=== PATIENT | female | born 1940 | race Caucasian/White ===

== ENCOUNTER 2021-01-28 17:19 | Observation (INO) | payer MEDICARE, SELFPAY ==
[2021-01-28 17:21] VITALS: BP 135/67; PULSE 69; RESP 18; TEMP 37.2; O2SAT 97; BMI 28.3
[2021-01-28 17:22] VITALS: BP 135/67; PULSE 69; RESP 18; TEMP 37.2; O2SAT 97
--- NOTE | 2021-01-28 17:40 | US_ITS ---
INDICATION: BILAT LOWER LEG REDNESS AND SWELLING EXAMINATION: US Venous Duplex LE Bilat Complete TECHNIQUE: Santana scale, pulse wave, and color flow Doppler imaging was performed of the lower extremity venous system. The bilateral greater saphenous, common femoral, femoral, and popliteal veins were interrogated. COMPARISON: None. FINDINGS: There is normal compression, augmentation, and signal throughout the visualized deep lower extremity veins. No mass or focal fluid collection. Subcutaneous edema seen in the bilateral lower legs. US/Venous Duplex Imag/Medardo Extrem IMPRESSION: No sonographic evidence of deep venous thrombosis. Electronically Signed: Corbin Katz MD at 19:38 EDT Tel , Service support ,
--- NOTE | 2021-01-28 17:43 | ED.DCSUM_ITS ---
- ER Visit Summary Date of Service: 01/28/21 Chief Complaint: Lower extremity redness History of Present Illness: The patient is a 80 F presenting with bilateral lower extremity redness and swelling. Patient states this has been ongoing for the past 2 weeks and has been progressively worsening. She has been seen by her primary care physician in [place]. She states she has been on 2 courses of antibiotics and just finished the second course today. She is unsure which antibiotics. She states she was advised to come to the ED by her primary care physician because her symptoms are not improving. She has had subjective fever with temperature up to 99. She denies chest pain or shortness of breath. She has nausea with no vomiting. Denies PE/DVT risk factors. She received Covid vaccine with second shot 2 weeks ago. Physical Examination: Vitals are stable. Patient is afebrile. Alert no acute distress. HEENT exam is unremarkable. Neck is supple. Lungs are clear and equal bilaterally. Heart is regular rate and rhythm. Abdomen is soft nontender nondistended. Extremities right greater than left lower extremity edema, bilateral lower extremity erythema, normal distal pulses Skin is warm and dry. No focal neurologic deficit. Remainder of exam is unremarkable. Emergency Department Course and Treatment: CBC, chemistries unremarkable. Sed rate is normal. Bilateral venous Doppler ultrasound shows no evidence of DVT. Patient was given vancomycin, morphine, Zofran. Will discuss with hospitalist for admission due to failed outpatient antibiotics. Disposition: Admission Impression: Bilateral lower extremity cellulitis This note was generated with [employer] dictation software. It may contain incorrect words, spelling, and punctuation that were not noted in review of the chart prior to signing ED Disposition - Plan for ED Patient: Referrals: Yovanny Boles MD [Primary Care Provider] -
[2021-01-28 18:17] LABS: Absolute Lymphocyte Count 1.68 X10^3/uL (0.83-4.51); Absolute Neutrophil Count 2.8 X10^3/uL (2.0-7.7); Basophil# 0.02 X10^3/uL; Basophil% 0.4 % (0-1); Eosinophil# 0.21 X10^3/uL; Hematocrit 35.5 % (37-47); Hemoglobin 11.2 g/dL (12.0-15.0); Lymphocyte # 1.68 X10^3/ul (4.0); Lymphocyte % 31.7 % (19-41); Mean Corp Hgb Conc 31.5 g/dL (32-36); Mean Corpuscular Hgb 25.9 pg (27.0-32.0); Mean Platelet Vol. 10.8 fl (6.2-12.0); Monocyte# 0.54 X10^3/uL; Monocyte% 10.2 % (0-10); NRBC Flagged by Analyzer 0 % (0-5); Neutrophil # 2.84 X10^3/uL (2.7-7.7); Neutrophil % 53.5 % (47-70); Platelet Count 279 K/mm3 (150-450); RBC Distribution Width CV 15.6 % (11.6-14.6); RBC Distribution Width SD 46.4 fl (35.1-43.9); Red Blood Count 4.33 M/mm3 (4.2-5.4); White Blood Count 5.3 K/mm3 (4.4-11.0)
[2021-01-28 18:23] LABS: Erythrocyte Sedimentation Rate 11 mm/hr (0-30)
[2021-01-28 18:34] LABS: Anion Gap 7 (5-15); BUN 19 mg/dL (7-18); BUN/Creat Ratio 18.1 RATIO (10-20); Calcium,Total 9.3 mg/dL (8.5-10.1); Chloride 106 mmol/L (98-107); Creatinine, Serum 1.05 mg/dL (0.55-1.02); EST Glomerular Filtration Rate 54 mL/min (>60); Est Glom Filt Rate - Afr Amer 65 mL/min (>60); Estimated Creatinine Clearance 38.13 ml/min; Glucose 115 mg/dL (74-106); Potassium 3.8 mmol/L (3.5-5.1); Sodium Level 140 mmol/L (136-145)
[2021-01-28] MEDS: Morphine 4 MG/ML Syringe IV (20:25)
[2021-01-28] MEDS: Ondansetron 4 MG/2 ML Vial IV (20:25)
[2021-01-28 20:29] VITALS: BP 124/61; PULSE 75; RESP 16; O2SAT 95
[2021-01-28 20:39] VITALS: BP 124/61; PULSE 75; RESP 16; TEMP 36.8; O2SAT 95
[2021-01-28] MEDS: Vancomycin IV 1,000 MG/200 ML BAG 200 MG IV (20:40)
--- NOTE | 2021-01-28 20:42 | HP.PCM_ITS ---
Problem List (1) Bilateral lower extremity edema Status: Acute (2) Diabetes mellitus type 2 in obese Status: Acute (3) GERD (gastroesophageal reflux disease) Status: Chronic (4) Hyperlipidemia Status: Chronic (5) Hypertension Status: Chronic (6) Chronic anemia Status: Chronic (7) Asthma Status: Chronic (8) Hypothyroidism Status: Chronic (9) Restless leg syndrome Status: Acute History of Present Illness Date of Admission: 01/28/21 Chief Complaint: Redness and inflammation to bilateral lower extremities The patient is a 80 year old F presents today with ongoing redness and swelling to bilateral lower extremities. Patient reports that she has been undergoing treatment by her PCP for this issue for 2 weeks with no improvement in symptoms. Patient has completed rounds of doxycycline and cephalexin with no improvement. Patient was sent to the ER today by her PCP to be further evaluated for suspected cellulitis with failed outpatient treatment. Venous duplex was completed in the ER and was negative for DVT. Patient reports that the redness and swelling is accompanied by itching and feeling like someone is snapping rubber bands all over my feet. Patient has white blood cell count 5.3, afebrile at this time. She is not tachypneic or tachycardic. Denies all other symptoms. Past Medical History Past Medical History (Chronic Problems): Chronic Problems GERD (gastroesophageal reflux disease) (Chronic) Hyperlipidemia (Chronic) Hypertension (Chronic) Chronic anemia (Chronic) Asthma (Chronic) Hypothyroidism (Chronic) Allergies celecoxib [From Celebrex] Allergy (Verified 01/28/21 17:22) Hives Penicillins Allergy (Verified 01/28/21 17:22) Itching Sulfa (Sulfonamide Antibiotics) Allergy (Verified 01/28/21 17:22) Swelling sulfacetamide [From Sulfamide] Allergy (Verified 01/28/21 17:22) Swelling Home Medications: Ambulatory Orders Medication Instructions Recorded Fluticasone/Salmeterol [Advair 2 puff INHALATION BID 01/28/21 250-50 Diskus] Levothyroxine Sodium 75 mcg PO DAILY 01/28/21 Lisinopril 10 mg PO DAILY 01/28/21 Metformin HCl [Metformin HCl ER] 750 mg PO BID 01/28/21 Omeprazole 40 mg PO DAILY 01/28/21 Pramipexole Di-HCl [Mirapex] 2 mg PO QHS 01/28/21 Pravastatin Sodium 40 mg PO DAILY 01/28/21 Surgical History: cataract - Bilateral, total knee arthroplasty - Bilateral, tonsillectomy, - - lumbar Surgery with hardware, x2 Psychiatric History: No pertinent psych hx [employer] History: No pertinent [employer] history Lives: Alone Smoking Status: Never smoker Alcohol: None Drugs: None - *Family History Maternal History Items: Hypertension Paternal History Items: Diabetes Review of Systems Constitutional: Reports: Fever - Patient reports elevated temperature of 99 at home. Denies: Chills, Weight Change HEENT: Denies: Head Aches, Sinus Congestion, Sinus Drainage Cardiovascular: Denies: Chest Pain, Palpitations Respiratory: Denies: Cough, Shortness of breath at rest, Sputum production Gastrointestinal: Denies: Abdominal Pain, Nausea, Vomiting Genitourinary: Denies: Dysuria Musculoskeletal: Reports: Foot Pain. Denies: Joint Pain, Joint Tenderness Skin: Reports: Rash - Red edematous pruritic rash to bilateral feet. Denies: Wounds Neurological: Denies: Numbness, Tingling, Focal weakness Psychiatric: Denies: Anxiety, Depression, Homicidal Ideations, Suicidal Ideations Hematologic/ Lymphatic: Denies: Easy Bruising, Easy Bleeding, Hx of blood clot VTE Information - Inpt Only VTE Present on Admission: No VTE Mechan Device Prophylaxis: SCD's VTE Pharm Prophylaxis ordered?: Yes Patient Problems: Active and Suspected Problems Diabetes mellitus type 2 in obese (Acute) Bilateral lower extremity edema (Acute) - Physical Exam Vitals/I&O's: Vital Signs Temp Pulse Resp BP Pulse Ox 99 F 75 16 124/61 H 95 01/28/21 17:22 01/28/21 20:29 01/28/21 20:29 01/28/21 20:29 01/28/21 20:29 Oxygen Delivery Method Room Air Weight: 165 lb Body Mass Index (BMI) 28.3 General: Alert, Oriented x3, Cooperative HEENT: Atraumatic, PERRLA, EOMI, Normocephalic Neck: Supple, No JVD, Negative Carotid Bruits Lungs: Clear to auscultation, Normal air movement Cardiovascular: Regular rate, No murmurs Abdomen: Bowel Sounds Present, Soft, Non Tender Extremities: Capillary Refill Less than 3 Seconds, Edema, Peripheral Pulses Normal Skin: No breakdown, Rash Present - Bilateral feet red, warm, swollen; right worse than left Musculoskeletal: No Tenderness to Palpation of Joints or Extremities Neurological: Cranial nerves II-XII grossly intact Psych/Mental Status: Normal Affect, Appropriate Laboratory Results 01/28/21 17:50: WBC 5.3, RBC 4.33, Hgb 11.2 L, Hct 35.5 L, MCV 82.0, MCH 25.9 L, MCHC 31.5 L, RDW Std Deviation 46.4 H, RDW Coeff of Dereje 15.6 H, Plt Count 279, MPV 10.8, Immature Gran % (Auto) 0.200, Neut % (Auto) 53.5, Lymph % (Auto) 31.7, Porter % (Auto) 10.2 H, Eos % (Auto) 4.0, Baso % (Auto) 0.4, Absolute Neuts (auto) 2.8, Absolute Lymphs (auto) 1.68, Nucleated RBC % 0, ESR 11 01/28/21 17:50: Sodium 140, Potassium 3.8, Chloride 106, Carbon Dioxide 27.0, Anion Gap 7, BUN 19 H, Creatinine 1.05 H, Estim Creat Clear Calc 38.13, Est GFR (MDRD) Af Amer 65, Est GFR (MDRD) Non-Af 54 L, BUN/Creatinine Ratio 18.1, Glucose 115 H, Calcium 9.3 Current Medications Vancomycin HCl (Vancomycin) 1,000 mg in 200 mls @ 200 mls/hr IV X1 ONE Stop: 01/28/21 21:29 Assessment/Plan All Active Problems Diabetes mellitus type 2 in obese (Acute) Bilateral lower extremity edema (Acute) Restless leg syndrome (Acute) 1. Bilateral lower extremity edema with redness suspicious for cellulitis -Venous Doppler obtained in ER, no DVT noted -Will continue vancomycin, received first dose in ED -Due to normal WBC will obtain procalcitonin level -As needed Benadryl ordered for itching -ROSALIO wraps ordered to bilateral feet and legs -Lasix 40 mg IV twice daily for swelling -Will obtain CBC in the morning -Elevate lower extremities while in bed 2. Diabetes mellitus type II -Hold Metformin -AC at bedtime blood sugar checks with sliding scale insulin 3. Hypertension -Continue lisinopril -As needed hydralazine ordered 4. Hypothyroidism -Continue levothyroxine 5. Hyperlipidemia -Continue pravastatin 6.Restless leg syndrome -Continue pramipexole. 7. GERD -Continue omeprazole. DVT prophylaxis-SCDs, subcu Lovenox This patient was seen by ÁNGELA Navarro under the supervision of Dr. Brown.
[2021-01-28 21:45] VITALS: BMI 31.8; BMI 31.9
[2021-01-28 21:50] VITALS: BP 122/46; PULSE 73; RESP 18; TEMP 36.2; O2SAT 93
[2021-01-28] MEDS: Insulin Lispro 100 UNIT/ML INSULN.PEN SC (23:18)
[2021-01-28] MEDS: MELATONIN 3 MG TABLET PO (23:19)
[2021-01-28] MEDS: DiphenhydrAMINE 50 MG/ML Syringe 12.5 MG IV (23:19)
[2021-01-28] MEDS: Furosemide 40 MG/4 ML Vial IV (23:19)
[2021-01-28] MEDS: Pramipexole Di-HCl 1 MG Tablet 2 MG PO (23:20)
[2021-01-28 23:38] LABS: Procalcitonin < 0.04 ng/mL (0.00-0.09)
[2021-01-28 23:41] LABS: Bedside Glucose 169 mg/dL (70-110)
--- NOTE | 2021-01-28 23:45 | PCM.RX.CS ---
Consult Pharmacy has been consulted to manage selected antiobiotic: Vancomycin Type of Consult: New start Suspected Infection: Skin/Soft tissue Prior Doses of Antibiotics Received/Current Regimen: Medications Vancomycin HCl 1,250 mg/ (Sodium Chloride) 275 mls @ 167 mls/hr IV Q24H ADILIA Discontinued Medications Vancomycin HCl (Vancomycin) 1,000 mg in 200 mls @ 200 mls/hr IV X1 ONE Stop: 01/28/21 21:29 Last Admin: 01/28/21 20:40 Dose: 200 mls/hr Labs: Sodium 140 mmol/L (136-145) 01/28/21 17:50 Potassium 3.8 mmol/L (3.5-5.1) 01/28/21 17:50 Chloride 106 mmol/L (98-107) 01/28/21 17:50 Carbon Dioxide 27.0 mmol/L (21.0-32.0) 01/28/21 17:50 Anion Gap 7 (5-15) 01/28/21 17:50 BUN 19 mg/dL (7-18) H 01/28/21 17:50 Creatinine 1.05 mg/dL (0.55-1.02) H 01/28/21 17:50 Est GFR (MDRD) Af Amer 65 mL/min (>60) 01/28/21 17:50 Est GFR (MDRD) Non-Af 54 mL/min (>60) L 01/28/21 17:50 BUN/Creatinine Ratio 18.1 RATIO (10-20) 01/28/21 17:50 Glucose 115 mg/dL (74-106) H 01/28/21 17:50 Weight used for dosin.3 kg Estimated Creatinine Clearance: 38 Goal Trough: 15-20 mcg/mL Pharmacy Plan for Drug Dosing: Pharmacy Service will continue to monitor and adjust dosing as required. Follow-Up Labs: Trough Vancomycin Labs to be done on [date and time ordered]: 01/30/21 @1999
[2021-01-29 03:27] VITALS: BP 117/45; PULSE 67; RESP 18; TEMP 36.3; O2SAT 97
[2021-01-29] MEDS: oxyCODONE 5 MG Tablet PO (03:35)
[2021-01-29] MEDS: 0.9% Saline Lock 10 ML Syringe IV ×3 (03:35→18:27)
[2021-01-29 05:51] LABS: Absolute Lymphocyte Count 1.57 X10^3/uL (0.83-4.51); Absolute Neutrophil Count 2.7 X10^3/uL (2.0-7.7); Basophil# 0.02 X10^3/uL; Basophil% 0.4 % (0-1); Eosinophil# 0.22 X10^3/uL; Eosinophils% 4.4 % (0-5); Hematocrit 33.8 % (37-47); Hemoglobin 10.4 g/dL (12.0-15.0); Lymphocyte # 1.57 X10^3/ul (4.0); Lymphocyte % 31.1 % (19-41); Mean Corp Hgb Conc 30.8 g/dL (32-36); Mean Corpuscular Hgb 25.7 pg (27.0-32.0); Mean Corpuscular Volume 83.5 fL (81-99); Mean Platelet Vol. 10.7 fl (6.2-12.0); Monocyte# 0.54 X10^3/uL; Monocyte% 10.7 % (0-10); NRBC Flagged by Analyzer 0 % (0-5); Neutrophil # 2.69 X10^3/uL (2.7-7.7); Neutrophil % 53.2 % (47-70); Platelet Count 241 K/mm3 (150-450); RBC Distribution Width CV 15.2 % (11.6-14.6); RBC Distribution Width SD 46.1 fl (35.1-43.9); Red Blood Count 4.05 M/mm3 (4.2-5.4); White Blood Count 5.1 K/mm3 (4.4-11.0)
[2021-01-29 06:17] LABS: AST(SGOT) 19 U/L (15-37); Alanine Aminotransfer ALT/SGPT 27 U/L (13-56); Albumin, Serum 3.1 g/dL (3.2-5.0); Alkaline Phosphatase 108 U/L (45-117); Anion Gap 5 (5-15); BUN 16 mg/dL (7-18); BUN/Creat Ratio 17.7 RATIO (10-20); Calcium,Total 8.9 mg/dL (8.5-10.1); Chloride 103 mmol/L (98-107); Creatinine, Serum 0.91 mg/dL (0.55-1.02); EST Glomerular Filtration Rate 64 mL/min (>60); Est Glom Filt Rate - Afr Amer 77 mL/min (>60); Globulin 3.1 g/dL (2.2-4.2); Glucose 126 mg/dL (74-106); Potassium 3.6 mmol/L (3.5-5.1); Protein, Total 6.2 g/dL (6.4-8.2); Sodium Level 139 mmol/L (136-145)
[2021-01-29] MEDS: Levothyroxine 75 MCG Tablet PO (06:27)
[2021-01-29 06:35] LABS: Bedside Glucose 123 mg/dL (70-110)
[2021-01-29 08:04] VITALS: O2SAT 97
[2021-01-29 09:26] VITALS: BP 108/41; PULSE 58; RESP 18; TEMP 36.6; O2SAT 96
[2021-01-29] MEDS: Enoxaparin 40 MG/0.4 ML Syringe SC (09:39)
[2021-01-29] MEDS: Furosemide 40 MG/4 ML Vial IV ×2 (09:39→18:27)
[2021-01-29] MEDS: Lisinopril 10 MG Tablet PO (09:40)
[2021-01-29] MEDS: Pantoprazole Sodium 40 MG Tablet PO (09:40)
--- NOTE | 2021-01-29 12:19 | PCM.PN.HOSP ---
Patient Problems: Active and Suspected Problems Diabetes mellitus type 2 in obese (Acute) Bilateral lower extremity edema (Acute) Restless leg syndrome (Acute) Subjective: Patient seen and examined. She was admitted with a complaint of redness and inflammation of her bilateral lower extremities. She has been treated on the outpatient basis by his PCP for 2 weeks with no improvement and so she was brought in to be managed for cellulitis of the lower extremities with failed outpatient treatment. Patient complains of itching over the lower extremities. She denies any fever or chills. Review of systems is otherwise negative. She has remained hemodynamically stable Vitals/I&O's: Vital Signs Temp Pulse Resp BP Pulse Ox 97.8 F 58 L 18 108/41 L 96 01/29/21 09:26 01/29/21 09:26 01/29/21 09:26 01/29/21 09:26 01/29/21 09:26 Oxygen Delivery Method Room Air Weight: 183 lb 3.266 oz Body Mass Index (BMI) 31.8 Intake and Output for Last 24 Hours 01/27/21 01/28/21 01/29/21 23:59 23:59 23:59 Intake Total 600 / 600 300 / 300 Balance 600 / 600 300 / 300 General: Alert, Oriented x3, Cooperative, No apparent distress HEENT: Atraumatic, PERRLA, EOMI, Normocephalic Oral: Dry Mucosa Neck: Supple, No JVD, Negative Carotid Bruits, No Nodes Lungs: Clear to auscultation, Normal air movement, No rhonchi, No wheeze, No rales Cardiovascular: Regular rate, Regular Rhythm, Normal S1, Normal S2, No murmurs Abdomen: Bowel Sounds Present, Soft, Non Tender, Non-Distended, No Hepato-splenomegaly Extremities: No clubbing, No cyanosis, No edema, Capillary Refill Less than 3 Seconds Skin: - - varicose veins over RLE, with mild erythema and papular rash over RLE. Stasis dermatitis due to varicose veins Musculoskeletal: - - mild right calf tenderness Lymphatic: No Cervical, Supraclavicular, or Inguinal Adenopathy Neurological: Cranial nerves II-XII grossly intact, Neuro grossly intact, Motor Exam 5/5 strength throughout Psych/Mental Status: Normal Affect, Appropriate, Alert and oriented to time, place, person, mood and affect Laboratory Results 01/28/21 17:50: WBC 5.3, RBC 4.33, Hgb 11.2 L, Hct 35.5 L, MCV 82.0, MCH 25.9 L, MCHC 31.5 L, RDW Std Deviation 46.4 H, RDW Coeff of Dereje 15.6 H, Plt Count 279, MPV 10.8, Immature Gran % (Auto) 0.200, Neut % (Auto) 53.5, Lymph % (Auto) 31.7, Luna % (Auto) 10.2 H, Eos % (Auto) 4.0, Baso % (Auto) 0.4, Absolute Neuts (auto) 2.8, Absolute Lymphs (auto) 1.68, Nucleated RBC % 0, ESR 11 01/28/21 17:50: Sodium 140, Potassium 3.8, Chloride 106, Carbon Dioxide 27.0, Anion Gap 7, BUN 19 H, Creatinine 1.05 H, Estim Creat Clear Calc 38.13, Est GFR (MDRD) Af Amer 65, Est GFR (MDRD) Non-Af 54 L, BUN/Creatinine Ratio 18.1, Glucose 115 H, Calcium 9.3 01/28/21 17:50: Magnesium 2.0 01/28/21 22:41: Procalcitonin < 0.04 01/28/21 23:16: POC Glucose 169 H 01/29/21 05:35: WBC 5.1, RBC 4.05 L, Hgb 10.4 L, Hct 33.8 L, MCV 83.5, MCH 25.7 L, MCHC 30.8 L, RDW Std Deviation 46.1 H, RDW Coeff of Dereje 15.2 H, Plt Count 241, MPV 10.7, Immature Gran % (Auto) 0.200, Neut % (Auto) 53.2, Lymph % (Auto) 31.1, Luna % (Auto) 10.7 H, Eos % (Auto) 4.4, Baso % (Auto) 0.4, Absolute Neuts (auto) 2.7, Absolute Lymphs (auto) 1.57, Nucleated RBC % 0 01/29/21 05:35: Sodium 139, Potassium 3.6, Chloride 103, Carbon Dioxide 31.0, Anion Gap 5, BUN 16, Creatinine 0.91, Estim Creat Clear Calc 44.00, Est GFR (MDRD) Af Amer 77, Est GFR (MDRD) Non-Af 64, BUN/Creatinine Ratio 17.7, Glucose 126 H, Calcium 8.9, Total Bilirubin 0.60, AST 19, ALT 27, Alkaline Phosphatase 108, Total Protein 6.2 L, Albumin 3.1 L, Globulin 3.1, Albumin/Globulin Ratio 1.0 01/29/21 06:27: POC Glucose 123 H Diagnostic Data Venous Duplex 01/28/21 17:40 IMPRESSION: No sonographic evidence of deep venous thrombosis. Electronically Signed: Corbin Katz MD at 19:38 EDT Tel , Service support , Current Medications Acetaminophen (Acetaminophen 325 Mg Tablet) 650 mg PO Q6H PRN PRN PRN Reason: Pain Score 1-10/Temp > 100.7 F Al Hydroxide/Mg Hydroxide (Mag Hydrox/Al Hydrox/Simeth 30 Ml Udc) 30 ml PO Q6H PRN PRN PRN Reason: Gastric Burning Diphenhydramine HCl (Diphenhydramine 50 Mg/Ml Syringe) 12.5 mg IV Q6H PRN PRN PRN Reason: PRURITIS Last Admin: 01/28/21 23:19 Dose: 12.5 mg Documented by: Enoxaparin Sodium (Enoxaparin 40 Mg/0.4 Ml Syringe) 40 mg SC DAILY REPLACED BY [facility] Last Admin: 01/29/21 09:39 Dose: 40 mg Documented by: Furosemide (Furosemide 40 Mg/4 Ml Vial) 40 mg IV BID@1000,1800 REPLACED BY [facility] Last Admin: 01/29/21 09:39 Dose: 40 mg Documented by: Guaifenesin (Guaifenesin 10 Ml Udc (200mg/10ml)) 20 ml PO Q4H PRN PRN PRN Reason: COUGH Hydralazine HCl (Hydralazine 20 Mg/Ml Vial) 10 mg IV Q4H PRN PRN PRN Reason: SBP > 160 Vancomycin IV Pharmacy to Dose (1 each/ Sodium Chloride) 500 mls @ 250 mls/hr IV PRN PRN; Protocol PRN Reason: Rx to Dose Sodium Chloride () 250 mls @ 15 mls/hr IV .[id number] PRN PRN Reason: Saline Flush Sodium Chloride () 250 mls @ 15 mls/hr IV .[id number] PRN PRN Reason: Additional IVPB Infusion Vancomycin HCl 1,250 mg/ (Sodium Chloride) 275 mls @ 167 mls/hr IV Q24H REPLACED BY [facility] Insulin Human Lispro (Insulin Lispro 100 Unit/Ml Insuln.Pen) 0 unit SC ACHS REPLACED BY [facility]; Protocol Last Admin: 01/29/21 06:27 Dose: Not Given Documented by: Levothyroxine Sodium (Levothyroxine 75 Mcg Tablet) 75 mcg PO DAILY@0600 REPLACED BY [facility] Last Admin: 01/29/21 06:27 Dose: 75 mcg Documented by: Lisinopril (Lisinopril 10 Mg Tablet) 10 mg PO DAILY REPLACED BY [facility] Last Admin: 01/29/21 09:40 Dose: 10 mg Documented by: Magnesium Hydroxide (Magnesium Hydroxide 30 Ml Udc) 30 ml PO DAILY PRN PRN PRN Reason: Constipation Melatonin (Melatonin 3 Mg Tablet) 3 mg PO QHS PRN PRN PRN Reason: INSOMNIA Last Admin: 01/28/21 23:19 Dose: 3 mg Documented by: Morphine Sulfate (Morphine 4 Mg/Ml Syringe) 4 mg IV Q3H PRN PRN PRN Reason: Pain Score 6-10 Nitroglycerin (Nitroglycerin (Inpatient Use) 0.4 Mg Tab.Subl) 0.4 mg SL Q5M PRN PRN Reason: CARDIAC/CHEST PAIN Nutritional Formula (Lactose Free) (Ensure Enlive 120 Ml Liquid) 120 ml PO 4X/DAY REPLACED BY [facility] Last Admin: 01/29/21 09:38 Dose: 120 ml Documented by: Ondansetron HCl (Ondansetron 4 Mg/2 Ml Vial) 4 mg IV Q6H PRN PRN PRN Reason: NAUSEA/VOMITING Oxycodone HCl (Oxycodone 5 Mg Tablet) 5 mg PO Q4H PRN PRN PRN Reason: Pain Score 4-5 Last Admin: 01/29/21 03:35 Dose: 5 mg Documented by: Pantoprazole Sodium (Pantoprazole Sodium 40 Mg Tablet) 40 mg PO DAILY REPLACED BY [facility] Last Admin: 01/29/21 09:40 Dose: 40 mg Documented by: Pramipexole Dihydrochloride (Pramipexole Di-Hcl 1 Mg Tablet) 2 mg PO QHS REPLACED BY [facility] Last Admin: 01/28/21 23:20 Dose: 2 mg Documented by: Pravastatin Sodium (Pravastatin 40 Mg Tablet) 40 mg PO DAILY@2200 REPLACED BY [facility] Prochlorperazine Edisylate (Prochlorperazine 10 Mg/2 Ml Vial) 5 mg IV Q4H PRN PRN PRN Reason: Breakthrough nausea/vomiting Psyllium Hydrophilic Mucilloid (Psyllium 1 Packet) 1 packet PO DAILY PRN PRN PRN Reason: Constipation Fluticasone/Salmeterol (Fluticasone/Salmeterol 250/50 Inhaler) 2 puff INHALATION BID REPLACED BY [facility] Last Admin: 01/29/21 09:38 Dose: 2 puff Documented by: Senna/Docusate Sodium (Senna/Docusate Sodium 1 Tablet) 2 tablet PO BID PRN PRN PRN Reason: Constipation Sodium Chloride (0.9% Saline Lock 10 Ml Syringe) 10 - 40 ml IV UD PRN PRN Reason: SALINE FLUSH Last Admin: 01/29/21 09:40 Dose: 10 ml Documented by: Throat Lozenges (Benzocaine/Menthol 1 Lozenge) 1 lozenge MUCOUS MEM Q2H PRN PRN PRN Reason: SORE THROAT STROKE Vital Signs/Narrative: Vital Signs Temp Pulse Resp BP Pulse Ox 01/29/21 09:26 97.8 F 58 L 18 108/41 L 96 Medical Necessity - Tobacco Use Smoking Status: Never smoker Assessment/Plan All Active Problems Diabetes mellitus type 2 in obese (Acute) Bilateral lower extremity edema (Acute) Restless leg syndrome (Acute) #STasis dermatitis of lower extremities I am not really convinced that this is cellulitis,a s the areas of redness and itching are close to varicose veins, and she has a papular, pruritic rash as well. Duplex was negative for DVT she has no leucocytosis, and procalcitonin was not elevated will give 1% hydrocortisone cream to help with itching ROSALIO wraps keep legs elevated. If varicose veins become more of an issue, will want consult vascular surgery. #Type 2 diabetes mellitus: Metformin on hold. Insulin sliding scale. Checks AC at bedtime. #Hypertension: On lisinopril. IV hydralazine as needed. #Hyper lipidemia: On statin #Hypothyroidism: On Synthroid #Restless leg syndrome: on pramipexole #GERD: on PPI DVT prophylaxis: lovenox Inpatient E&M: 48949 Subs Hosp L2
[2021-01-29 12:40] LABS: Bedside Glucose 115 mg/dL (70-110)
--- NOTE | 2021-01-29 12:59 | CASEMGMT ---
DILIP MOURA in to discuss JIM form with pt. RN CM explained JIM form, pt voiced understanding. Pt signed form and filed in chart. Pt provided with copy of signed form. Pt had no further questions or concerns at this time.
[2021-01-29 14:15] VITALS: BP 105/48; PULSE 72; RESP 17; TEMP 36.4; O2SAT 94
[2021-01-29] MEDS: Hydrocortisone 2.5% Crm 1 APPLIC TOPICAL (15:54)
--- NOTE | 2021-01-29 16:19 | NURSING ---
pt requesting to wear SCD's instead of ROSALIO wraps. Pt educated on importance of rosalio wraps. Continues to request SCD machine. Will apply.
[2021-01-29 16:31] LABS: Bedside Glucose 119 mg/dL (70-110)
[2021-01-29 20:19] VITALS: BP 103/56; PULSE 65; RESP 18; TEMP 36.7; O2SAT 96
[2021-01-29] MEDS: Pramipexole Di-HCl 1 MG Tablet 2 MG PO (22:08)
[2021-01-29] MEDS: Pravastatin 40 MG Tablet PO (22:09)
[2021-01-29] MEDS: Insulin Lispro 100 UNIT/ML INSULN.PEN SC (22:12)
[2021-01-29 22:20] LABS: Bedside Glucose 219 mg/dL (70-110)
[2021-01-30 02:22] VITALS: BP 123/62; PULSE 63; RESP 16; TEMP 36.6; O2SAT 94
[2021-01-30] MEDS: oxyCODONE 5 MG Tablet PO (02:38)
[2021-01-30] MEDS: DiphenhydrAMINE 50 MG/ML Syringe 12.5 MG IV (02:39)
[2021-01-30 05:03] LABS: Absolute Lymphocyte Count 1.47 X10^3/uL (0.83-4.51); Absolute Neutrophil Count 2.1 X10^3/uL (2.0-7.7); Basophil# 0.02 X10^3/uL; Basophil% 0.5 % (0-1); Eosinophil# 0.26 X10^3/uL; Eosinophils% 6.1 % (0-5); Hematocrit 33.2 % (37-47); Hemoglobin 10.5 g/dL (12.0-15.0); Lymphocyte # 1.47 X10^3/ul (4.0); Lymphocyte % 34.3 % (19-41); Mean Corp Hgb Conc 31.6 g/dL (32-36); Mean Corpuscular Hgb 25.9 pg (27.0-32.0); Mean Platelet Vol. 10.7 fl (6.2-12.0); Monocyte# 0.47 X10^3/uL; NRBC Flagged by Analyzer 0 % (0-5); Neutrophil # 2.06 X10^3/uL (2.7-7.7); Neutrophil % 47.9 % (47-70); Platelet Count 231 K/mm3 (150-450); RBC Distribution Width CV 15.3 % (11.6-14.6); Red Blood Count 4.05 M/mm3 (4.2-5.4); White Blood Count 4.3 K/mm3 (4.4-11.0)
[2021-01-30 05:17] LABS: Anion Gap 5 (5-15); BUN 21 mg/dL (7-18); BUN/Creat Ratio 21.9 RATIO (10-20); Calcium,Total 8.4 mg/dL (8.5-10.1); Chloride 102 mmol/L (98-107); Creatinine, Serum 0.96 mg/dL (0.55-1.02); EST Glomerular Filtration Rate 60 mL/min (>60); Est Glom Filt Rate - Afr Amer 72 mL/min (>60); Estimated Creatinine Clearance 41.71 ml/min; Glucose 126 mg/dL (74-106); Potassium 3.5 mmol/L (3.5-5.1); Sodium Level 138 mmol/L (136-145)
[2021-01-30] MEDS: Levothyroxine 75 MCG Tablet PO (06:46)
[2021-01-30 06:56] LABS: Bedside Glucose 135 mg/dL (70-110)
[2021-01-30 07:10] VITALS: O2SAT 95
[2021-01-30 07:57] VITALS: BP 111/59; PULSE 62; RESP 18; TEMP 36.3; O2SAT 90
--- NOTE | 2021-01-30 08:01 | NURSING ---
PT ENCOURAGED TO USE I.S.
[2021-01-30] MEDS: Lisinopril 10 MG Tablet PO (08:05)
[2021-01-30] MEDS: Pantoprazole Sodium 40 MG Tablet PO (08:05)
[2021-01-30] MEDS: Enoxaparin 40 MG/0.4 ML Syringe SC (09:12)
[2021-01-30] MEDS: Furosemide 40 MG/4 ML Vial IV (09:12)
[2021-01-30] MEDS: Hydrocortisone 2.5% Crm 1 APPLIC TOPICAL (09:18)
--- NOTE | 2021-01-30 11:41 | DCINST_ITS ---
- Discharge Diagnoses Current Active Problems: Current Active and Chronic Problems Diabetes mellitus type 2 in obese (Acute) GERD (gastroesophageal reflux disease) (Chronic) Hyperlipidemia (Chronic) Hypertension (Chronic) Chronic anemia (Chronic) Asthma (Chronic) Hypothyroidism (Chronic) Bilateral lower extremity edema (Acute) Restless leg syndrome (Acute) You will use the following diet at home:: Cardiac Your food should be the consistency of: Regular Your liquids should be the consistency of: Regular/Thin Discharge Activity: Return to Normal Activity Weight Bearing Status: Weight bearing as tolerated Call your doctor if you observe: Fever of 101 or Higher, Swelling in the ankles, - - lower extremity swelling Instructions: Understanding Spider and Varicose Veins, ED Varicose Veins Additional Instructions: keep legs well moisturised always. Wear compression stockings to help with varicose veins. Allergies/Adverse Reactions: Allergies albuterol Allergy (Verified 01/29/21 04:45) Other attacks nervous system celecoxib [From Celebrex] Allergy (Verified 01/28/21 17:22) Hives Penicillins Allergy (Verified 01/28/21 17:22) Itching Sulfa (Sulfonamide Antibiotics) Allergy (Verified 01/28/21 17:22) Swelling sulfacetamide [From Sulfamide] Allergy (Verified 01/28/21 17:22) Swelling Medications to take at Discharge Fluticasone/Salmeterol [Advair 250-50 Diskus] 2 puff INHALATION BID 01/28/21 Levothyroxine Sodium 75 mcg PO DAILY 01/28/21 Lisinopril 10 mg PO DAILY 01/28/21 Metformin HCl [Metformin HCl ER] 750 mg PO BID 01/28/21 Omeprazole 40 mg PO DAILY 01/28/21 Pramipexole Di-HCl [Mirapex] 2 mg PO QHS 01/28/21 Pravastatin Sodium 40 mg PO DAILY 01/28/21 Compression Socks, Medium [Compression Socks] 1 each MC DAILY #1 each 01/30/21 Hydrocortisone 2.5% Crm [Hytone] 1 applic TOPICAL BID PRN PRN #1 tube 01/30/21 The following prescriptions were given: Compression Socks, Medium [Compression Socks] 1 each MC DAILY #1 each Transmission Status: Pending to [facility]/pharmacy #[id number] Hydrocortisone 2.5% Crm [Hytone] 1 applic TOPICAL BID PRN PRN #1 tube PRN Reason: Itching Transmission Status: Pending to [facility]/pharmacy #[id number] Primary Care Physician: Yovanny Boles MD [Primary Care Provider] - Please follow up with your Primary Care Physician in: 1-2 weeks Test Results: Test results from this visit will be discussed in further detail at your follow-up appointment, if applicable. Please Follow Up With: Alfonso Conti MD When: 2-4 weeks to evaluate varicose veins Proposed Discharge Date: 01/30/21
--- NOTE | 2021-01-30 11:43 | PCM.DC.SUM ---
Discharge Date and Diagnosis - Problem List Patient Problems: Active and Suspected Problems Diabetes mellitus type 2 in obese (Acute) Bilateral lower extremity edema (Acute) Restless leg syndrome (Acute) Date of Admission: 01/28/21 Date of Discharge: 01/30/21 - Primary Discharge Diagnosis Acute Problems: Active Problems Diabetes mellitus type 2 in obese (Acute) Bilateral lower extremity edema (Acute) Restless leg syndrome (Acute) venous stasis dermatitis varicose veins - Secondary Discharge Diagnosis Chronic Problems: Chronic Problems GERD (gastroesophageal reflux disease) (Chronic) Hyperlipidemia (Chronic) Hypertension (Chronic) Chronic anemia (Chronic) Asthma (Chronic) Hypothyroidism (Chronic) Hospital Course and Treatment Imaging Results: Diagnostic Data Venous Duplex 01/28/21 17:40 IMPRESSION: No sonographic evidence of deep venous thrombosis. Electronically Signed: Corbin Katz MD at 19:38 EDT Tel , Service support , Operations: None Procedures: None Summary of Care Provided: The patient is a 80 year old F with a PMH as outlined who was admitted with a PM as outlined who was admitted with a complaint of redness and inflammation of the bilateral lower extremities. She had been treated for cellulitis on outpatient basis. Howevere, thre redness still persisted, so her PCP sent her in to the ED for treatment for cellulitis with failed outpatient therapy. Duplex of the LEs was negative for any DVT. SHe was started on IV vancomycin. However on further evaluation it appeared that his symptoms were more likely due to venous stasis dermatitis as she had prominent varicose veins on her lower extremities and had resultant pruritus as well and in addition the erythematous areas were all over the varicose veins. She was put on 1% hydrocortisone cream as well as Benadryl for the itching and this helped significantly. She did not have any fever during admission and white cell count was not elevated. Procalcitonin was also not elevated. Patient counseled that his symptoms were therefore likely due to the venous stasis dermatitis. She was discharged home with a prescription for SPEEDY stockings. She is to follow-up with her PCP and was also referred to vascular surgery. She was counseled to keep her legs elevated and to wear the SPEEDY stockings to help with the varicose veins. Patient seen and examined prior to discharge. She had no complaints. Review of systems otherwise negative. Labs and vitals reviewed. Home medication reviewed and reconciled. O/E: Vital Signs Temp Pulse Resp BP Pulse Ox 97.4 F L 62 18 111/59 L 93 01/30/21 12:11 01/30/21 12:11 01/30/21 12:11 01/30/21 12:11 01/30/21 12:11 [] General: Alert, Oriented x3, Cooperative, No apparent distress HEENT: Atraumatic, PERRLA, EOMI, Normocephalic Oral: Dry Mucosa Neck: Supple, No JVD, Negative Carotid Bruits, No Nodes Lungs: Clear to auscultation, Normal air movement, No rhonchi, No wheeze, No rales Cardiovascular: Regular rate, Regular Rhythm, Normal S1, Normal S2, No murmurs Abdomen: Bowel Sounds Present, Soft, Non Tender, Non-Distended, No Hepato-splenomegaly Extremities: No clubbing, No cyanosis, No edema, Capillary Refill Less than 3 Seconds Skin: - - varicose veins over RLE, with mild erythema and papular rash over RLE. Stasis dermatitis due to varicose veins Musculoskeletal: - - mild right calf tenderness Lymphatic: No Cervical, Supraclavicular, or Inguinal Adenopathy Neurological: Cranial nerves II-XII grossly intact, Neuro grossly intact, Motor Exam 5/5 strength throughout Psych/Mental Status: Normal Affect, Appropriate, Alert and oriented to time, place, person, mood and affect Plan is for discharge home today. Patient Problems: Active and Suspected Problems Diabetes mellitus type 2 in obese (Acute) Bilateral lower extremity edema (Acute) Restless leg syndrome (Acute) - Physical Exam Vitals/I&O's: Vital Signs Temp Pulse Resp BP Pulse Ox 97.4 F L 62 18 111/59 L 90 01/30/21 07:57 01/30/21 07:57 01/30/21 07:57 01/30/21 07:57 01/30/21 07:57 Oxygen Delivery Method Room Air Weight: 183 lb 6.793 oz Body Mass Index (BMI) 31.8 Intake and Output for Last 24 Hours 01/28/21 01/29/21 01/30/21 23:59 23:59 23:59 Intake Total 600 / 600 1655 / 1655 Balance 600 / 600 1655 / 1655 Laboratory Results 01/29/21 12:34: POC Glucose 115 H 01/29/21 16:27: POC Glucose 119 H 01/29/21 22:12: POC Glucose 219 H 01/30/21 04:50: WBC 4.3 L, RBC 4.05 L, Hgb 10.5 L, Hct 33.2 L, MCV 82.0, MCH 25.9 L, MCHC 31.6 L, RDW Std Deviation 46.0 H, RDW Coeff of Dereje 15.3 H, Plt Count 231, MPV 10.7, Immature Gran % (Auto) 0.200, Neut % (Auto) 47.9, Lymph % (Auto) 34.3, [place] % (Auto) 11.0 H, Eos % (Auto) 6.1 H, Baso % (Auto) 0.5, Absolute Neuts (auto) 2.1, Absolute Lymphs (auto) 1.47, Nucleated RBC % 0 01/30/21 04:50: Sodium 138, Potassium 3.5, Chloride 102, Carbon Dioxide 31.0, Anion Gap 5, BUN 21 H, Creatinine 0.96, Estim Creat Clear Calc 41.71, Est GFR (MDRD) Af Amer 72, Est GFR (MDRD) Non-Af 60, BUN/Creatinine Ratio 21.9 H, Glucose 126 H, Calcium 8.4 L 01/30/21 06:48: POC Glucose 135 H Current Medications Acetaminophen (Acetaminophen 325 Mg Tablet) 650 mg PO Q6H PRN PRN PRN Reason: Pain Score 1-10/Temp > 100.7 F Al Hydroxide/Mg Hydroxide (Mag Hydrox/Al Hydrox/Simeth 30 Ml Udc) 30 ml PO Q6H PRN PRN PRN Reason: Gastric Burning Diphenhydramine HCl (Diphenhydramine 50 Mg/Ml Syringe) 12.5 mg IV Q6H PRN PRN PRN Reason: PRURITIS Last Admin: 01/30/21 02:39 Dose: 12.5 mg Documented by: Enoxaparin Sodium (Enoxaparin 40 Mg/0.4 Ml Syringe) 40 mg SC DAILY [facility] Last Admin: 01/30/21 09:12 Dose: 40 mg Documented by: Furosemide (Furosemide 40 Mg/4 Ml Vial) 40 mg IV BID@1000,1800 [facility] Last Admin: 01/30/21 09:12 Dose: 40 mg Documented by: Guaifenesin (Guaifenesin 10 Ml Udc (200mg/10ml)) 20 ml PO Q4H PRN PRN PRN Reason: COUGH Hydralazine HCl (Hydralazine 20 Mg/Ml Vial) 10 mg IV Q4H PRN PRN PRN Reason: SBP > 160 Hydrocortisone (Hydrocortisone 2.5% Crm) 1 applic TOPICAL BID PRN PRN; Protocol PRN Reason: ITCHING Last Admin: 01/30/21 09:18 Dose: 1 applic Documented by: Vancomycin IV Pharmacy to Dose (1 each/ Sodium Chloride) 500 mls @ 250 mls/hr IV PRN PRN; Protocol PRN Reason: Rx to Dose Sodium Chloride () 250 mls @ 15 mls/hr IV .[id number] PRN PRN Reason: Saline Flush Sodium Chloride () 250 mls @ 15 mls/hr IV .[id number] PRN PRN Reason: Additional IVPB Infusion Vancomycin HCl 1,250 mg/ (Sodium Chloride) 275 mls @ 167 mls/hr IV Q24H [facility] Last Infusion: 01/29/21 22:20 Dose: Infused Documented by: Insulin Human Lispro (Insulin Lispro 100 Unit/Ml Insuln.Pen) 0 unit SC [facility]; Protocol Last Admin: 01/30/21 06:51 Dose: Not Given Documented by: Levothyroxine Sodium (Levothyroxine 75 Mcg Tablet) 75 mcg PO DAILY@0600 [facility] Last Admin: 01/30/21 06:46 Dose: 75 mcg Documented by: Lisinopril (Lisinopril 10 Mg Tablet) 10 mg PO DAILY [facility] Last Admin: 01/30/21 08:05 Dose: 10 mg Documented by: Magnesium Hydroxide (Magnesium Hydroxide 30 Ml Udc) 30 ml PO DAILY PRN PRN PRN Reason: Constipation Melatonin (Melatonin 3 Mg Tablet) 3 mg PO QHS PRN PRN PRN Reason: INSOMNIA Last Admin: 01/28/21 23:19 Dose: 3 mg Documented by: Morphine Sulfate (Morphine 4 Mg/Ml Syringe) 4 mg IV Q3H PRN PRN PRN Reason: Pain Score 6-10 Nitroglycerin (Nitroglycerin (Inpatient Use) 0.4 Mg Tab.Subl) 0.4 mg SL Q5M PRN PRN Reason: CARDIAC/CHEST PAIN Ondansetron HCl (Ondansetron 4 Mg/2 Ml Vial) 4 mg IV Q6H PRN PRN PRN Reason: NAUSEA/VOMITING Oxycodone HCl (Oxycodone 5 Mg Tablet) 5 mg PO Q4H PRN PRN PRN Reason: Pain Score 4-5 Last Admin: 01/30/21 02:38 Dose: 5 mg Documented by: Pantoprazole Sodium (Pantoprazole Sodium 40 Mg Tablet) 40 mg PO DAILY [facility] Last Admin: 01/30/21 08:05 Dose: 40 mg Documented by: Pramipexole Dihydrochloride (Pramipexole Di-Hcl 1 Mg Tablet) 2 mg PO QHS [facility] Last Admin: 01/29/21 22:08 Dose: 2 mg Documented by: Pravastatin Sodium (Pravastatin 40 Mg Tablet) 40 mg PO DAILY@2200 [facility] Last Admin: 01/29/21 22:09 Dose: 40 mg Documented by: Prochlorperazine Edisylate (Prochlorperazine 10 Mg/2 Ml Vial) 5 mg IV Q4H PRN PRN PRN Reason: Breakthrough nausea/vomiting Psyllium Hydrophilic Mucilloid (Psyllium 1 Packet) 1 packet PO DAILY PRN PRN PRN Reason: Constipation Fluticasone/Salmeterol (Fluticasone/Salmeterol 250/50 Inhaler) 2 puff INHALATION BID [facility] Last Admin: 01/30/21 09:12 Dose: 2 puff Documented by: Senna/Docusate Sodium (Senna/Docusate Sodium 1 Tablet) 2 tablet PO BID PRN PRN PRN Reason: Constipation Sodium Chloride (0.9% Saline Lock 10 Ml Syringe) 10 - 40 ml IV UD PRN PRN Reason: SALINE FLUSH Last Admin: 01/29/21 18:27 Dose: 10 ml Documented by: Throat Lozenges (Benzocaine/Menthol 1 Lozenge) 1 lozenge MUCOUS MEM Q2H PRN PRN PRN Reason: SORE THROAT Discharge Diet: Low fat/ Low Cholesterol Discharge Activity: Return to Normal Activity Weight Bearing Status: Weight bearing as tolerated Call your doctor if you observe: Fever of 101 or Higher, Swelling in the ankles, - - lower extremity swelling Home Medications: Medications to take at Discharge Fluticasone/Salmeterol [Advair 250-50 Diskus] 2 puff INHALATION BID 01/28/21 Levothyroxine Sodium 75 mcg PO DAILY 01/28/21 Lisinopril 10 mg PO DAILY 01/28/21 Metformin HCl [Metformin HCl ER] 750 mg PO BID 01/28/21 Omeprazole 40 mg PO DAILY 01/28/21 Pramipexole Di-HCl [Mirapex] 2 mg PO QHS 01/28/21 Pravastatin Sodium 40 mg PO DAILY 01/28/21 Compression Socks, Medium [Compression Socks] 1 each [facility] DAILY #1 each 01/30/21 Hydrocortisone 2.5% Crm [Hytone] 1 applic TOPICAL BID PRN PRN #1 tube 01/30/21 Following Prescriptions Were Given to Patient: Compression Socks, Medium [Compression Socks] 1 each MC DAILY #1 each Transmission Status: Received by [id number] Hydrocortisone 2.5% Crm [Hytone] 1 applic TOPICAL BID PRN PRN #1 tube PRN Reason: Itching Transmission Status: Received by [id number] Primary Care Physician: Yovanny Boles MD [Primary Care Provider] - Please follow up with your Primary Care Physician in: 1-2 weeks Please Follow Up With: Alfonso Conti MD When: 2-4 weeks to evaluate varicose veins Patient Instructions: Understanding Spider and Varicose Veins, ED Varicose Veins Disposition: Home Minutes spent on discharge:: 40 Patient Condition:: Stable Medical Necessity - Tobacco Use Smoking Status: Never smoker Meaningful Use Info Meaningful Use Diagnoses (Choose all that apply): None applicable Inpatient E&M: 17775 Disch Hosp
[2021-01-30 12:11] VITALS: BP 111/59; PULSE 62; RESP 18; TEMP 36.3; O2SAT 93
== END 2021-01-30 12:11 | disposition home or self-care (01) ==
LOC: ED 19:36 → MS3 20:48
PROVIDERS: Admitting Provider Family Medicine; Emergency Provider Emergency Medicine; PCP Family Medicine; Visit Provider Student in an Organized Health Care Education/Training Program
DX: I83.12 Varicose veins of left lower extremity with inflammation (principal); I83.11 Varicose veins of right lower extremity with inflammation; G25.81 Restless legs syndrome; E11.9 Type 2 diabetes mellitus without complications; E66.9 Obesity, unspecified; K21.9 Gastro-esophageal reflux disease without esophagitis; E78.5 Hyperlipidemia, unspecified; I10 Essential (primary) hypertension; E03.9 Hypothyroidism, unspecified; J45.909 Unspecified asthma, uncomplicated; Z79.899 Other long term (current) drug therapy; Z79.51 Long term (current) use of inhaled steroids; Z79.84 Long term (current) use of oral hypoglycemic drugs; Z68.31 Body mass index [BMI] 31.0-31.9, adult
CPT/HCPCS: 36415; 80048; 80053; 82962; 83735; 84145; 85025; 85652; 93970; 96365; 96366; 96372; 96375; 96376; 97802; 99218; 99285; J7050; A4216; G0378; J1940; J2405